=== PATIENT | male | born 1955 | race Caucasian/White ===

== ENCOUNTER 2020-03-10 13:10 | Inpatient (IN) | payer MEDICARE ==
[~2020-03-10] VITALS: Ht 177.8 cm; Wt 93.6 kg
[~2020-03-10 13:10] MED LIST: BACI28.42 TP; GABA300C10 PO; HYDR-3237 PO; METF850T10 PO; TAMS-11 PO
--- NOTE | 2020-03-10 14:31 | NUR ---
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
[2020-03-10 14:58] LABS: MEAN CORPUSCULAR HEMOGLOBIN 27.7 pg (27.5-34.5); MEAN CORPUSCULAR HGB CONC 32.1 g/dL (33.2-36.2); PLATELET COUNT 263 x10^3/uL (130-400); RED BLOOD COUNT 5.37 x10^6/uL (4.38-5.82); RED CELL DISTRIBUTION WIDTH 13.2 % (9.4-14.8)
[2020-03-10 15:00] LABS: ALANINE AMINOTRANSFERASE 34 U/L (12-78); ALBUMIN 4.4 g/dL (3.4-5.0); ANION GAP 7 mmol/L (5-15); CALCIUM 9.3 mg/dL (8.5-10.1); CHLORIDE 98 mmol/L (98-107); CREATININE 3.11 mg/dL (0.7-1.3)
[2020-03-10 15:03] LABS: ALKALINE PHOSPHATASE 110 U/L (45-117); BILIRUBIN,TOTAL 1.1 mg/dL (0.2-1.0); TOTAL PROTEIN 9.1 g/dL (6.4-8.2)
[2020-03-10 16:05] LABS: MICROSCOPIC AUTO
[2020-03-10 16:27] LABS: MD YES
[2020-03-10 16:32] LABS: BASOS#(MANUAL) 0.13 x10^3/uL (0-0.1); BASOS% (MANUAL) 1 % (0-1); EOS#(MANUAL) 0.13 x10^3/uL (0.0-0.4); EOS% (MANUAL) 1 % (1-7); LYMPH#(MANUAL) 2.11 x10^3/uL (1-3.4); LYMPHS% (MANUAL) 16 % (22-44); MONOS#(MANUAL) 0.53 x10^3/uL (0.3-2.7); MONOS% (MANUAL) 4 % (2-9); SEGS% (MANUAL) 78 % (42-75)
[2020-03-10 16:33] LABS: <PLATELET ESTIMATE> ADEQUATE; <RBC MORPHOLOGY> NORMAL
[2020-03-10 16:34] LABS: <PLT MORPHOLOGY> NORMAL PLT MORPH
--- NOTE | 2020-03-10 18:33 | NUR ---
CONSTIPATION, UNABLE TO PEE SINCE SUNDAY AFTER NOON. NEW PAINFUL BUMP ON RT SIDE. RECENT STOOL POSITIVE FOR BLOOD. PT IN BED WITH CONT SP02, BP Q 30 MIN. FEELS BETTER FATER CATH PUT IN
[2020-03-10] MEDS ORDERED: GUAIFENESIN/DM 200-20MG, 10ML UDC PO PRN (20:00)
[2020-03-10] MEDS ORDERED: hydrALAzine 20 MG/ML, 1ML IVPush PRN (20:00)
[2020-03-10] MEDS ORDERED: ONDANSETRON 2MG/ML, 2ML IVPush PRN (20:00)
[2020-03-10] MEDS ORDERED: HYDROcodone/APAP 5/325 TABLET PO PRN (20:00)
[2020-03-10] MEDS ORDERED: METHOCARBAMOL 500 MG TABLET PO PRN (20:00)
[2020-03-10] MEDS ORDERED: morphine SULFATE 10 MG/ML, 1ML IVPush PRN (20:00)
[2020-03-10] MEDS ORDERED: ACETAMINOPHEN 325 MG TABLET PO PRN (20:00)
[2020-03-10] MEDS: SODIUM CHLORIDE 0.9% 1,000 ML IV SCH (22:18)
[2020-03-10 22:32] VITALS: BP 134/58
[2020-03-10] MEDS: INSULIN REGULAR 100 UNITS/ML, 3ML VIAL SQ-INSULIN SCH (23:21)
[2020-03-10] MEDS: ZOLPIDEM 5MG TABLET PO PRN (23:21)
[2020-03-10] MEDS: HEPARIN 5,000 UNITS/ML, 1ML SQ SCH (23:21)
[2020-03-11 04:35] VITALS: BP 147/79
[2020-03-11] MEDS: SODIUM CHLORIDE 0.9% 1,000 ML IV SCH (04:47)
[2020-03-11 05:11] LABS: BASOPHILS # (AUTO) 0.03 x10^3/uL (0-0.1); BASOPHILS % (AUTO) 0 % (0-1); EOSINOPHILS # (AUTO) 0.19 x10^3/uL (0-0.4); EOSINOPHILS % (AUTO) 3 % (1-7); LYMPHOCYTES # (AUTO) 1.38 x10^3/uL (1-3.4); LYMPHOCYTES % (AUTO) 19 % (22-44); MD NO; MEAN CORPUSCULAR HEMOGLOBIN 27.8 pg (27.5-34.5); MEAN CORPUSCULAR HGB CONC 32.3 g/dL (33.2-36.2); MEAN PLATELET VOLUME 8.9 fL (7.4-10.4); MONOCYTES # (AUTO) 0.77 x10^3/uL (0.2-0.8); MONOCYTES % (AUTO) 10 % (2-9); NEUTROPHILS # (AUTO) 5.05 x10^3/uL (1.8-6.8); NEUTROPHILS % (AUTO) 68 % (42-75); PLATELET COUNT 208 x10^3/uL (130-400); RED BLOOD COUNT 4.61 x10^6/uL (4.38-5.82); RED CELL DISTRIBUTION WIDTH 12.8 % (9.4-14.8)
[2020-03-11 05:19] LABS: ANION GAP 5 mmol/L (5-15); CALCIUM 8.5 mg/dL (8.5-10.1); CHLORIDE 108 mmol/L (98-107); CREATININE 1.43 mg/dL (0.7-1.3)
[2020-03-11] MEDS: INSULIN REGULAR 100 UNITS/ML, 3ML VIAL SQ-INSULIN SCH ×4 (07:00→20:09)
[2020-03-11] MEDS ORDERED: POTASSIUM CHLORIDE 20 MEQ TAB.ER.PRT PO ONE (07:30)
[2020-03-11 08:30] VITALS: BP 140/75
[2020-03-11] MEDS: TAMSULOSIN 0.4 MG CAP.ER.24H PO SCH (09:51)
[2020-03-11] MEDS: SENNA/DOCUSATE TABLET PO SCH (09:51)
[2020-03-11] MEDS: HEPARIN 5,000 UNITS/ML, 1ML SQ SCH ×3 (09:52→23:25)
[2020-03-11] MEDS: FINASTERIDE 5 MG TABLET PO SCH (10:14)
[2020-03-11 15:28] VITALS: BP 139/76
[2020-03-11] MEDS ORDERED: MAGNESIUM CITRATE 300ML ORAL SOL PO ONE (17:30)
[2020-03-11] MEDS ORDERED: SODIUM CHLORIDE 0.9% 1,000 ML IV SCH (19:39)
[2020-03-11 20:15] VITALS: BP 174/81
[2020-03-11] MEDS: ACETAMINOPHEN 325 MG TABLET PO PRN (23:25)
[2020-03-11] MEDS: ZOLPIDEM 5MG TABLET PO PRN (23:28)
[2020-03-12 04:02] VITALS: BP 165/90
[2020-03-12 04:54] LABS: BASOPHILS # (AUTO) 0.03 x10^3/uL (0-0.1); BASOPHILS % (AUTO) 1 % (0-1); EOSINOPHILS # (AUTO) 0.24 x10^3/uL (0-0.4); EOSINOPHILS % (AUTO) 4 % (1-7); LYMPHOCYTES # (AUTO) 1.59 x10^3/uL (1-3.4); LYMPHOCYTES % (AUTO) 24 % (22-44); MD NO; MEAN CORPUSCULAR HEMOGLOBIN 27.4 pg (27.5-34.5); MEAN CORPUSCULAR HGB CONC 31.6 g/dL (33.2-36.2); MEAN PLATELET VOLUME 9.1 fL (7.4-10.4); MONOCYTES # (AUTO) 0.66 x10^3/uL (0.2-0.8); MONOCYTES % (AUTO) 10 % (2-9); NEUTROPHILS # (AUTO) 4.13 x10^3/uL (1.8-6.8); NEUTROPHILS % (AUTO) 62 % (42-75); PLATELET COUNT 208 x10^3/uL (130-400); RED BLOOD COUNT 4.64 x10^6/uL (4.38-5.82); RED CELL DISTRIBUTION WIDTH 12.9 % (9.4-14.8)
[2020-03-12 05:06] LABS: CALCIUM 8.1 mg/dL (8.5-10.1); CHLORIDE 109 mmol/L (98-107)
[2020-03-12 05:10] LABS: ANION GAP 6 mmol/L (5-15); CREATININE 0.87 mg/dL (0.7-1.3)
[2020-03-12] MEDS: INSULIN REGULAR 100 UNITS/ML, 3ML VIAL SQ-INSULIN SCH ×2 (07:00→11:00)
[2020-03-12] MEDS ORDERED: POTASSIUM CHLORIDE 20 MEQ TAB.ER.PRT PO ONE (07:30)
[2020-03-12] MEDS ORDERED: CARVEDILOL 3.125 MG TABLET PO SCH (07:30)
[2020-03-12 08:01] VITALS: BP 180/88
[2020-03-12] MEDS: HEPARIN 5,000 UNITS/ML, 1ML SQ SCH (08:08)
[2020-03-12] MEDS: SENNA/DOCUSATE TABLET PO SCH (08:08)
[2020-03-12] MEDS: TAMSULOSIN 0.4 MG CAP.ER.24H PO SCH (08:09)
[2020-03-12] MEDS: FINASTERIDE 5 MG TABLET PO SCH (08:10)
[2020-03-12] MEDS: ACETAMINOPHEN 325 MG TABLET PO PRN (08:21)
[2020-03-12 09:28] VITALS: BP 166/74
[2020-03-12] MEDS ORDERED: BISACODYL 10 MG SUPP PR PRN (10:00)
[2020-03-12] MEDS ORDERED: FINA5TAB4 PO (10:41)
[2020-03-12] MEDS ORDERED: CARV3.1212 PO ×2 (10:41)
[2020-03-12] MEDS ORDERED: SENN-193 PO (10:41)
[2020-03-12] MEDS ORDERED: SODIUM CHLORIDE 0.9% 1,000 ML IV SCH (19:39)
[2020-03-26] MEDS ORDERED: DILT360C PO (14:39)
[2020-03-26] MEDS ORDERED: METO50TA82 PO (14:39)
[2020-03-26] MEDS ORDERED: LEVO750T26 PO (14:39)
[2020-05-13] MEDS ORDERED: CARV3.122 PO (20:55)
[2020-05-20] MEDS ORDERED: CEFT1VIA20 IV (14:51)
[2020-05-20] MEDS ORDERED: LINE600T15 PO (14:51)
[2020-05-20] MEDS ORDERED: METO50TA82 PO (14:53)
== END 2020-03-12 13:55 | disposition home or self-care (01) | DRG 683 ==
LOC: ED 15:35 → EDIP 18:18 → 3WST 20:56 → DCLOUNGE 03-12 13:55
PROVIDERS: ADMIT Internal Medicine; ATTEND Internal Medicine
PROC: 0T9B30Z Drainage of Bladder with Drainage Device, Percutaneous Approach (ICD-10-PCS; principal; 2020-03-10)
DX: N17.9 Acute kidney failure, unspecified (principal); E87.1 Hypo-osmolality and hyponatremia; N40.1 Benign prostatic hyperplasia with lower urinary tract symptoms; K59.00 Constipation, unspecified; E11.9 Type 2 diabetes mellitus without complications; F32.9 Major depressive disorder, single episode, unspecified; G47.00 Insomnia, unspecified; E66.9 Obesity, unspecified; E87.6 Hypokalemia; Z80.0 Family history of malignant neoplasm of digestive organs; Z90.49 Acquired absence of other specified parts of digestive tract; Z80.8 Family history of malignant neoplasm of other organs or systems; Z87.81 Personal history of (healed) traumatic fracture; Z79.84 Long term (current) use of oral hypoglycemic drugs; R33.8 Other retention of urine
CPT/HCPCS: 36415; 74021; 80048; 80053; 81001; 82962; 83036; 83735; 85025; G0378; J1644; J1815; J7030

== ENCOUNTER 2020-04-10 21:55 | Emergency (ER) | payer MEDICARE ==
[~2020-04-10] VITALS: Ht 180.3 cm; Wt 87.0 kg
[~2020-04-10 21:55] MED LIST changes: +CARV3.1212 PO; +DILT360C PO; +FINA5TAB4 PO; +LEVO750T26 PO; +METO50TA82 PO; +SENN-193 PO
[2020-04-10 22:05] VITALS: BP 141/65
--- NOTE | 2020-04-10 22:14 | NUR ---
THIS IS A 64Y M BIB EMS FROM [facility], PT WAS SEEN AT UROLOGY SUNDAY AND NEW FOX WAS PLACED IN OFFICE FOR URINARY RETENTION. SINCE THEN PT REPORTS CONSTANT PAIN AND BLEEDING, UPON ARRIVAL TO ER NO BLOOD CLOTS/ ADA BLOOD NOTED IN FOX BAG. PT A/O X4 CONNECTED TO MONITORING VSS NADN, CALL LIGHT IN REACH
[2020-04-10 22:31] LABS: MICROSCOPIC AUTO
--- NOTE | 2020-04-10 22:32 | NUR ---
URINE SENT TO LAB
--- NOTE | 2020-04-10 22:35 | NUR ---
ALL RESULTS BACK CHART UP FOR RECHECK
[2020-04-10] MEDS ORDERED: CIPROFLOXACIN 500 MG TABLET ONE (23:22)
[2020-04-10] MEDS ORDERED: CIPROFLOXACIN 500 MG TABLET PO ONE (23:30)
--- NOTE | 2020-04-10 23:49 | NUR ---
JOSIANE REQUESTED FROM [facility] @ 1826. [facility] NOT ABLE GIVE ETA BECAUSE THEY ARE BUSY BUT PT HAS BEEN ADDED INTO QUE
== END 2020-04-11 01:01 | disposition short-term general hospital (02) ==
LOC: ED 23:36
DX: N30.00 Acute cystitis without hematuria (principal); N40.1 Benign prostatic hyperplasia with lower urinary tract symptoms; R33.8 Other retention of urine; I10 Essential (primary) hypertension; E11.9 Type 2 diabetes mellitus without complications; I48.91 Unspecified atrial fibrillation
CPT/HCPCS: 81001; 87077; 87086; 87186; 99283

== ENCOUNTER 2020-06-14 10:21 | Observation (INO) | payer MEDICARE ==
[~2020-06-14] VITALS: Ht 177.8 cm; Wt 88.6 kg
[~2020-06-14 10:21] MED LIST changes: +CARV3.122 PO; +CEFT1VIA20 IV; +LINE600T15 PO
[2020-06-14] MEDS ORDERED: LACTATED RINGERS 1,000 ML IV SCH (11:00)
[2020-06-14] MEDS ORDERED: CHLORHEXIDINE 15 ML UDC MM ONE (11:00)
[2020-06-14] MEDS ORDERED: FENTANYL PF 250 MCG/5ML ONE (12:34)
[2020-06-14] MEDS ORDERED: MIDAZOLAM 1 MG/ML, 2ML ONE (12:34)
[2020-06-14] MEDS ORDERED: ONDANSETRON 2MG/ML, 2ML ONE (12:46)
[2020-06-14] MEDS ORDERED: CIPROFLOXACIN/PMX 400MG/200ML 200 ML ONE (12:46)
[2020-06-14] MEDS ORDERED: PROPOFOL 50 ML ONE (13:23)
[2020-06-14] MEDS ORDERED: DIAZEPAM 5 MG/ML, 2ML IVPush PRN (14:30)
[2020-06-14] MEDS ORDERED: MEPERIDINE/PF 25MG/0.5ML IVPush PRN (14:30)
[2020-06-14] MEDS ORDERED: EPHEDRINE 50 MG/ML, 1ML IVPush PRN (14:30)
[2020-06-14] MEDS ORDERED: EPHEDRINE 50 MG/ML, 1ML IM PRN (14:30)
[2020-06-14] MEDS ORDERED: ONDANSETRON 2MG/ML, 2ML IVPush PRN (14:30)
[2020-06-14] MEDS ORDERED: OXYcodone/APAP 5/325MG TABLET PO PRN (14:30)
[2020-06-14] MEDS: CIPROFLOXACIN/PMX 400MG/200ML 200 ML IV SCH (14:30)
[2020-06-14] MEDS ORDERED: PROMETHAZINE 25 MG/ML, 1ML IVPush PRN (14:30)
[2020-06-14] MEDS ORDERED: LABETALOL 5MG/ML, 20ML IV PRN (14:30)
[2020-06-14] MEDS: LACTATED RINGERS 1,000 ML IV SCH (14:30)
[2020-06-14] MEDS ORDERED: ONDANSETRON 2MG/ML, 2ML IV PRN (14:30)
[2020-06-14] MEDS ORDERED: ACETAMINOPHEN 325 MG TABLET PO PRN (14:30)
[2020-06-14] MEDS ORDERED: OXYcodone 5 MG/5 ML ORAL.SOL UDC PO PRN (14:30)
[2020-06-14] MEDS ORDERED: DIPHENHYDRAMINE 50 MG/ML, 1ML IVPush PRN (14:30)
[2020-06-14] MEDS ORDERED: HYDROmorphone 1 MG/ML, 1ML INJ IVPush PRN (14:30)
[2020-06-14] MEDS ORDERED: FENTANYL PF 100 MCG/2ML ONE (14:43)
[2020-06-14] MEDS ORDERED: ACETAMINOPHEN 650 MG/20.3 ML UDC ONE (14:43)
[2020-06-14] MEDS ORDERED: OXYcodone 5 MG/5 ML ORAL.SOL UDC ONE (14:43)
[2020-06-14] MEDS: FENTANYL PF 100 MCG/2ML IV PRN ×2 (14:46→14:58)
[2020-06-14 19:35] VITALS: BP 156/81
[2020-06-14] MEDS: GABAPENTIN 300 MG CAPSULE PO SCH (22:22)
[2020-06-14] MEDS: METOPROLOL TARTRATE 50 MG TAB PO SCH (22:23)
[2020-06-15 01:19] VITALS: BP 118/70
[2020-06-15] MEDS: CIPROFLOXACIN/PMX 400MG/200ML 200 ML IV SCH (02:39)
[2020-06-15] MEDS: LACTATED RINGERS 1,000 ML IV SCH (03:50)
[2020-06-15 05:47] VITALS: BP 119/73
[2020-06-15] MEDS: METOPROLOL TARTRATE 50 MG TAB PO SCH (05:50)
[2020-06-15 07:50] VITALS: BP 105/61
[2020-06-15] MEDS ORDERED: metFORMIN 850 MG TABLET PO SCH (08:00)
[2020-06-15] MEDS: GABAPENTIN 300 MG CAPSULE PO SCH (08:30)
[2020-06-15] MEDS ORDERED: TAMSULOSIN 0.4 MG CAP.ER.24H PO SCH (09:00)
[2020-06-15] MEDS ORDERED: SULF1TAB24 PO (09:27)
== END 2020-06-15 12:30 | disposition home or self-care (01) ==
LOC: OUT 10:21 → 4NE 14:07 → OUT 14:07 → 4NE 15:50 → DCLOUNGE 06-15 12:17
PROVIDERS: ADMIT Urology; ATTEND Urology
DX: N40.1 Benign prostatic hyperplasia with lower urinary tract symptoms (principal); R33.8 Other retention of urine; I10 Essential (primary) hypertension; E11.9 Type 2 diabetes mellitus without complications; Z90.79 Acquired absence of other genital organ(s); Z79.899 Other long term (current) drug therapy; Z79.82 Long term (current) use of aspirin
CPT/HCPCS: 52601; 82962; 88305; 96365; 96366; G0378; J0744; J2250; J2405; J2704; J3010; J7120